=== PATIENT | female | born 1990 | race Caucasian/White ===

== ENCOUNTER 2024-07-20 18:36 | Emergency (ER) | payer MEDICAID, SELFPAY ==
[2024-07-20 18:42] VITALS: BP 126/87; PULSE 82; TEMP 36.4; O2SAT 98; BMI 20.8
[2024-07-20 18:58] LABS: Bilirubin Urine NEGATIVE (NEGATIVE); Blood Urine TRACE-I (NEGATIVE); Clarity Urine CLEAR (CLEAR); Color Urine LT. YELLOW (YELLOW); Glucose Urine UA NEGATIVE (NEGATIVE); Ketones Urine NEGATIVE (NEGATIVE); Leukocyte Esterase Urine MODERATE (NEGATIVE); Nitrite Urine NEGATIVE (NEGATIVE); Protein Urine NEGATIVE (NEG/TRACE); Urobilinogen Urine 0.2 EU/dL (0.2-1.0)
[2024-07-20 19:06] LABS: Bacteria Urine LARGE #/HPF (NONE SEEN); Cast Seen? NONE SEEN #/LPF (NONE SEEN); Crystals Seen? None Seen #/HPF (None Seen); Mucus Urine NONE SEEN (NONE SEEN); Squamous Epithelial Cell Urine FEW #/LPF (NONE/RARE); Transitional Epi Cells Urine RARE #/LPF (NONE SEEN); Urine Culture Indicated YES
--- NOTE | 2024-07-20 19:18 | ED.FEMALEGU1 ---
HPI - Female Genitourinary General Chief complaint: Urogenital-Female Stated complaint: urinary Time Seen by Provider: 07/20/24 19:06 Source: patient Mode of arrival: walk-in Limitations: no limitations History of Present Illness HPI Narrative: Patient is a 34-year-old female who presents to the emergency department for the evaluation of burning with urination and low back pain. She has had no objective fevers. She takes Zofran chronically for history of vomiting. She has no concern for , no flank pain. She reports pain across the low back. She has not noted any blood in her urine. Related Data Home Medications ?Medication ?Instructions ?Recorded ?Confirmed albuterol sulfate 90 mcg/actuation 2 puff inhalation Q4H PRN 07/20/24 07/20/24 aerosol inhaler shortness of breath or wheezing myxromfmuvrwexj-[id number]-GP 5 ml PO Q12H PRN cold symptoms 07/20/24 07/20/24 2 mg-30 mg-10 mg/5 mL oral syrup Previous Rx's ?Medication ?Instructions ?Recorded cephalexin 500 mg capsule 500 mg PO Q8H 7 days #21 caps 07/20/24 ketorolac 10 mg tablet 10 mg PO TID PRN pain #10 tabs 07/20/24 promethazine 25 mg tablet 25 mg PO Q6H PRN nausea and 07/20/24 vomiting #12 tabs Allergies Allergy/AdvReac Type Severity Reaction Status Date / Time No Known Drug Allergies Allergy Verified 07/20/24 18:42 Review of Systems ROS Constitutional Denies: fever or chills Ears, nose, mouth, and throat Denies: throat pain or nasal congestion Cardiovascular Denies: chest pain Respiratory Denies: shortness of breath or cough Gastrointestinal Denies: abdominal pain or nausea Musculoskeletal Reports: back pain; Denies: neck pain Integumentary/Breast Denies: rash Neurological Denies: numbness in extremities or weakness in extremities Hematologic/Lymphatic Denies: easy bruising or easy bleeding PFSH PFSH Social History Little interest or pleasure in doing things: not at all Feeling down, depressed, or hopeless: not at all Exam Narrative Exam Narrative: Gen.: Awake, alert, in no distress Head: Normocephalic, atraumatic ENT: Moist mucous membranes Respiratory: No respiratory distress, lungs clear bilaterally Cardio: Regular rate and rhythm Gastrointestinal: Abdomen is soft, nondistended and nontender to palpation; no CVA tenderness Extremities: Moves extremities equally Psych: Normal mood and affect Neuro: No focal neuro deficit Skin: Warm, dry, intact Constitutional Vital Signs, click to edit/add: Last Vital Signs Temp 97.5 F L 07/20/24 18:42 Pulse 82 07/20/24 18:42 Resp 20 07/20/24 18:42 BP 126/87 07/20/24 18:42 Pulse Ox 98 07/20/24 18:42 O2 Del Method Room Air 07/20/24 18:42 Course Vital Signs Vital signs: Vital Signs Temperature 97.5 F L 07/20/24 18:42 Pulse Rate 82 07/20/24 18:42 Respiratory Rate 20 07/20/24 18:42 Blood Pressure 126/87 07/20/24 18:42 Pulse Oximetry 98 07/20/24 18:42 Oxygen Delivery Method Room Air 07/20/24 18:42 Temperature 97.5 F L 07/20/24 18:42 Pulse Rate 82 07/20/24 18:42 Respiratory Rate 20 07/20/24 18:42 Blood Pressure 126/87 07/20/24 18:42 Pulse Oximetry 98 07/20/24 18:42 Oxygen Delivery Method Room Air 07/20/24 18:42 MDM - Female Genitourinary MDM Narrative Medical decision making narrative: Urine specimen with no significant blood, evidence of urinary tract infection noted. She has had a previous hysterectomy. At the time of my evaluation, patient has no significant discomfort with stable vital signs. She is prescribed Keflex, Phenergan, Toradol for discomfort. Follow-up with PCP and return to the ER if symptoms change or worsen. SUPERVISED APC VISIT, PHYSICIAN ATTESTATION: Based on the medical record the care appears appropriate. ? Medical Records Attestation: I reviewed the patient's medical records. Lab Data Attestation: I reviewed the patient's lab results. Labs: Lab Results 07/20/24 Range/Units 18:45 Urine Color Lt. yellow (YELLOW) Urine Clarity Clear (CLEAR) Urine pH 6.0 (5.0-9.0) Ur Specific [place] 1.020 (1.005-1.025) Urine Protein Negative (NEG/TRACE) mg/dL Urine Glucose (UA) Negative (NEGATIVE) mg/dL Urine Ketones Negative (NEGATIVE) mg/dL Urine Occult Blood Trace-i (NEGATIVE) Urine Nitrite Negative (NEGATIVE) Urine Bilirubin Negative (NEGATIVE) Urine Urobilinogen 0.2 (0.2-1.0) EU/dL Ur Leukocyte Esterase Moderate A (NEGATIVE) Urine RBC 2-5 A (0-2) #/HPF Urine WBC 10-20 A (NONE SEEN) #/HPF Ur Squamous Epith Cells Few A (NONE/RARE) #/LPF Ur Transition Epith Cell Rare A (NONE SEEN) #/LPF Urine Crystals None seen (None Seen) #/HPF Urine Bacteria Large A (NONE SEEN) #/HPF Urine Casts None seen (NONE SEEN) #/LPF Urine Mucus None seen (NONE SEEN) Ur Culture Indicated? Yes Discharge Plan Discharge Chief Complaint: Urogenital-Female Clinical Impression: Urinary tract infection Patient Disposition: Home, Self-Care Time of Disposition Decision: 19:15 Condition: Good Prescriptions / Home Meds: New ketorolac 10 mg tablet 10 mg PO TID PRN (Reason: pain) Qty: 10 0RF cephalexin 500 mg capsule 500 mg PO Q8H 7 Days Qty: 21 0RF promethazine 25 mg tablet 25 mg PO Q6H PRN (Reason: nausea and vomiting) Qty: 12 0RF No Action albuterol sulfate 90 mcg/actuation HFA aerosol inhaler 2 puff INHALATION Q4H PRN (Reason: shortness of breath or wheezing) [id number] 2-30-10 mg/5 mL syrup 5 ml PO Q12H PRN (Reason: cold symptoms) Print Language: [place] Instructions: Urinary Tract Infection in Women (ED) Referrals: Physician,Non-Staff, MD [Primary Care Provider] - 1 week
== END 2024-07-20 19:28 | disposition home or self-care (01) ==
PROVIDERS: Emergency Medicine; Emergency Provider Emergency Medicine
DX: N39.0 Urinary tract infection, site not specified (principal); Z90.710 Acquired absence of both cervix and uterus
CPT/HCPCS: 81001; 87086; 87150; 87186; 99283